=== PATIENT | female | born 1935 | race Hispanic/Latino ===

== ENCOUNTER → 2018-03-02 | Outpatient (CLI) | payer OTHER, MEDICARE ==
[~2018-03-02] MED LIST: Aspirin PO; CARV3.12 PO; GEMF600T3 PO; GLIP5TAB11 PO; ISOS30TA6 PO; LISI-617 PO; METF500T6 PO
== END | disposition home or self-care (01) ==
LOC: SHCH 15:45
PROVIDERS: ATTEND Internal Medicine Cardiovascular Disease
DX: I10 Essential (primary) hypertension (principal)
CPT/HCPCS: 93306

== ENCOUNTER 2019-10-22 22:50 | Emergency (ER) | payer OTHER, MEDICARE ==
[~2019-10-22 22:50] MED LIST changes: -GEMF600T3 PO; +GEMF600T5 PO; +METF-444 PO; -METF500T6 PO
[2019-10-22 23:34] LABS: BASOPHILS % (AUTO) 0.8 % (0.0-5.0); EOSINOPHILS % (AUTO) 2.5 % (0.0-8.0); HEMATOCRIT 40.6 % (36-48); LYMPHOCYTES % (AUTO) 19.3 % (21.0-51.0); MEAN CORPUSCULAR HEMOGLOBIN 28.4 pg (27.0-33.0); MEAN CORPUSCULAR HGB CONC 33.3 g/dL (32.0-36.0); MEAN CORPUSCULAR VOLUME 85.3 fL (79-99); MONOCYTES % (AUTO) 6.2 % (3.0-13.0); NEUTROPHILS % (AUTO) 70.8 % (40.0-77.0); PLATELET COUNT (AUTO) 143 K/uL (130-400); RED BLOOD CELL COUNT(AUTO) 4.76 MIL/uL (4.00-5.50); RED CELL DISTRIBUTION WIDTH 12.5 % (11.0-15.5); WHITE BLOOD COUNT (AUTO) 5.1 K/uL (4.8-10.8)
[2019-10-22 23:47] LABS: CREATININE 0.8 mg/dL (0.5-1.5); POTASSIUM 4.4 mmol/L (3.5-5.1)
[2019-10-22 23:48] LABS: ALBUMIN 3.7 g/dL (3.5-5.0); BILIRUBIN,TOTAL 0.8 mg/dL (0.2-1.0); TOTAL PROTEIN, SERUM 7.6 g/dL (6.0-8.3)
[2019-10-22] MEDS ORDERED: SODIUM CHLORIDE 0.9% 1000ML 1,000 ML IV ONE (23:49)
[2019-10-23 00:02] LABS: APPEARANCE,URINE Clear (CLEAR); BILIRUBIN,URINE Negative (NEGATIVE); COLOR,URINE Yellow (YELLOW); GLUCOSE, URINE (UA) Negative (NEGATIVE); KETONES,URINE Negative (NEGATIVE); LEUKOCYTE ESTERASE ,URINE Negative (NEGATIVE); NITRATE,URINE Negative (NEGATIVE); OCCULT BLOOD,URINE Negative (NEGATIVE); PH,URINE 6.5 (5.0-8.0); PROTEIN,URINE Negative (NEGATIVE); UROBILINOGEN,URINE 0.2 mg/dL (0.2-1.0)
[2019-10-23] MEDS ORDERED: PHENAZOPYRIDINE HCL 200 MG TABLET ONE (01:53)
== END 2019-10-23 02:28 | disposition home or self-care (01) ==
LOC: EDH 22:50
DX: F43.9 Reaction to severe stress, unspecified (principal); R30.0 Dysuria; I10 Essential (primary) hypertension; E11.9 Type 2 diabetes mellitus without complications; E78.5 Hyperlipidemia, unspecified; I25.10 Atherosclerotic heart disease of native coronary artery without angina pectoris; Z98.890 Other specified postprocedural states
CPT/HCPCS: 36415; 71045; 80053; 81003; 84484; 85025; 93005; 99285; J7030

== ENCOUNTER 2019-10-24 09:06 | Emergency (ER) | payer OTHER, MEDICARE ==
[2019-10-24] MEDS ORDERED: NITROGLYCERIN 1GM/1 INCH PACKET TD ONE (09:38)
[2019-10-24 10:00] LABS: INR 0.97 (0.85-1.15); PARTIAL THROMBOPLASTIN TIME 26.4 SEC (26.3-35.5); PROTHROMBIN TIME 10.2 SEC (9.6-11.6)
[2019-10-24 10:12] LABS: CREATININE 0.8 mg/dL (0.5-1.5); POTASSIUM 4.3 mmol/L (3.5-5.1)
[2019-10-24 10:17] LABS: ALBUMIN 3.6 g/dL (3.5-5.0); TOTAL PROTEIN, SERUM 7.4 g/dL (6.0-8.3)
[2019-10-24 10:24] LABS: BASOPHILS % (AUTO) 0.4 % (0.0-5.0); EOSINOPHILS % (AUTO) 1.9 % (0.0-8.0); HEMATOCRIT 41.6 % (36-48); LYMPHOCYTES % (AUTO) 19.8 % (21.0-51.0); MEAN CORPUSCULAR HEMOGLOBIN 28.2 pg (27.0-33.0); MEAN CORPUSCULAR HGB CONC 32.9 g/dL (32.0-36.0); MEAN CORPUSCULAR VOLUME 85.6 fL (79-99); MONOCYTES % (AUTO) 6.6 % (3.0-13.0); NEUTROPHILS % (AUTO) 70.9 % (40.0-77.0); PLATELET COUNT (AUTO) 137 K/uL (130-400); RED BLOOD CELL COUNT(AUTO) 4.86 MIL/uL (4.00-5.50); RED CELL DISTRIBUTION WIDTH 12.6 % (11.0-15.5); WHITE BLOOD COUNT (AUTO) 4.9 K/uL (4.8-10.8)
[2019-10-24] MEDS ORDERED: METOPROLOL TARTRATE 1 MG/ML 5ML VIAL IV ONE (11:08)
[2019-10-25] MEDS ORDERED: LOSA1TAB54 PO (20:23)
[2019-10-25] MEDS ORDERED: GLIP10TA9 PO (20:23)
[2019-10-25] MEDS ORDERED: METF-446 PO (20:23)
== END 2019-10-24 13:39 | disposition home or self-care (01) ==
LOC: EDH 09:06
DX: R07.89 Other chest pain (principal); R20.2 Paresthesia of skin; E11.65 Type 2 diabetes mellitus with hyperglycemia; I10 Essential (primary) hypertension; Z79.899 Other long term (current) drug therapy; I25.10 Atherosclerotic heart disease of native coronary artery without angina pectoris; E78.5 Hyperlipidemia, unspecified; Z87.891 Personal history of nicotine dependence; Z88.8 Allergy status to other drugs, medicaments and biological substances
CPT/HCPCS: 36415; 70450; 71045; 72125; 80053; 82550; 83880; 84484 ×2; 85025; 85610; 85730; 93005 ×2; 96374; 99285; J3490

== ENCOUNTER 2019-10-24 19:51 | Observation (INO) | payer OTHER, MEDICARE ==
[~2019-10-24] VITALS: Ht 152.4 cm; Wt 61.1 kg
[2019-10-24] MEDS ORDERED: NITROGLYCERIN 0.4 MG SL TAB SL PRN (22:15)
[2019-10-24] MEDS ORDERED: DILTIAZEM 125MG+100 ML NS 125 ML IV SCH (22:15)
[2019-10-24] MEDS ORDERED: HYDRALAZINE HCL 20 MG/ML VIAL IV PRN (22:15)
[2019-10-24] MEDS ORDERED: CLONIDINE HCL 0.1 MG TABLET PO PRN (22:15)
[2019-10-24] MEDS ORDERED: CLONIDINE HCL 0.1 MG TABLET ONE (22:41)
[2019-10-25] MEDS ORDERED: SODIUM CHLORIDE 0.9% 1000ML 1,000 ML IV SCH (01:02)
[2019-10-25] MEDS ORDERED: MAGNESIUM 2GM PREMIX 50ML 50 ML IV PRN (01:15)
[2019-10-25] MEDS ORDERED: GLUCAGON 1MG KIT 1 MG ML IM PRN (01:15)
[2019-10-25] MEDS ORDERED: LACTULOSE 20 GM/30 ML UDCUP PO PRN (01:15)
[2019-10-25] MEDS ORDERED: ACETAMINOPHEN 325 MG TAB PO PRN (01:15)
[2019-10-25] MEDS ORDERED: LIDOCAINE HCL-MPF 1% 2ML VIAL IV PRN (01:15)
[2019-10-25] MEDS ORDERED: DEXTROSE 50%-WATER 50 ML DISP.SYRIN IV PRN (01:15)
[2019-10-25] MEDS ORDERED: NITROGLYCERIN 1GM/1 INCH PACKET TD SCH (01:15)
[2019-10-25] MEDS ORDERED: DIPHENHYDRAMINE HCL 25 MG CAPSULE PO PRN (01:15)
[2019-10-25] MEDS ORDERED: POTASSIUM CHLORIDE 20MEQ/100ML 100 ML IV PRN (01:15)
[2019-10-25] MEDS ORDERED: POTASSIUM CHLORIDE 20 MEQ ERTAB PO PRN (01:15)
[2019-10-25] MEDS ORDERED: POTASSIUM CHLORIDE 10% ELIXIR 20 MEQ/15 ML UDCUP PO PRN (01:15)
[2019-10-25] MEDS ORDERED: ONDANSETRON HCL 4 MG/2 ML VIAL IV PRN (01:15)
[2019-10-25 05:10] LABS: EOSINOPHILS % (AUTO) 1.9 % (0.0-8.0); HEMATOCRIT 36.1 % (36-48); LYMPHOCYTES % (AUTO) 22.1 % (21.0-51.0); MEAN CORPUSCULAR HEMOGLOBIN 28.4 pg (27.0-33.0); MEAN CORPUSCULAR HGB CONC 33.2 g/dL (32.0-36.0); MEAN CORPUSCULAR VOLUME 85.3 fL (79-99); MONOCYTES % (AUTO) 7.2 % (3.0-13.0); NEUTROPHILS % (AUTO) 67.4 % (40.0-77.0); PLATELET COUNT (AUTO) 138 K/uL (130-400); RED BLOOD CELL COUNT(AUTO) 4.23 MIL/uL (4.00-5.50); RED CELL DISTRIBUTION WIDTH 12.7 % (11.0-15.5); WHITE BLOOD COUNT (AUTO) 5.2 K/uL (4.8-10.8)
[2019-10-25 05:24] LABS: CREATININE 0.8 mg/dL (0.5-1.5); MAGNESIUM 1.7 mg/dL (1.80-2.40); POTASSIUM 4.2 mmol/L (3.5-5.1)
[2019-10-25] MEDS ORDERED: SODIUM CHLORIDE 0.9% 500ML 500 ML IV ONE (08:02)
[2019-10-25] MEDS ORDERED: NITROGLYCERIN 1GM/1 INCH PACKET TD ONE ×2 (08:04→16:01)
[2019-10-25] MEDS ORDERED: CARVEDILOL 3.125 MG TABLET PO ONE (08:04)
[2019-10-25] MEDS ORDERED: MAGNESIUM 2GM PREMIX 50ML 50 ML IV ONE (08:04)
[2019-10-25] MEDS ORDERED: HEPARIN SODIUM 5000UNIT/ML 1ML VIAL ONE ×2 (08:04→21:10)
[2019-10-25] MEDS ORDERED: AMLODIPINE BESYLATE 5 MG TAB ONE (08:04)
[2019-10-25] MEDS ORDERED: FAMOTIDINE/PF 20 MG/2 ML VIAL IV ONE (08:05)
[2019-10-25] MEDS ORDERED: AMLODIPINE BESYLATE 5 MG TAB PO SCH (09:00)
[2019-10-25] MEDS ORDERED: CARVEDILOL 3.125 MG TABLET PO SCH ×2 (09:00→21:00)
[2019-10-25 09:03] LABS: APPEARANCE,URINE Clear (CLEAR); BILIRUBIN,URINE Negative (NEGATIVE); COLOR,URINE Yellow (YELLOW); GLUCOSE, URINE (UA) Negative (NEGATIVE); KETONES,URINE Negative (NEGATIVE); LEUKOCYTE ESTERASE ,URINE Negative (NEGATIVE); NITRATE,URINE Negative (NEGATIVE); OCCULT BLOOD,URINE Negative (NEGATIVE); PROTEIN,URINE Negative (NEGATIVE); UROBILINOGEN,URINE 0.2 mg/dL (0.2-1.0)
[2019-10-25] MEDS ORDERED: HYDRALAZINE HCL 20 MG/ML VIAL IM PRN (15:00)
[2019-10-25] MEDS ORDERED: ACETAMINOPHEN 325 MG TAB ONE (16:01)
[2019-10-25] MEDS ORDERED: LOSARTAN 50 MG TABLET ONE (16:51)
[2019-10-25] MEDS ORDERED: ISOSORBIDE MONO 30MG TAB SR PO ONE (16:51)
[2019-10-25] MEDS ORDERED: INSULIN HUMULIN R 100 UNIT/ML 3ML ONE ×2 (17:19→23:06)
[2019-10-25] MEDS ORDERED: LOSA1TAB54 PO (20:23)
[2019-10-25] MEDS ORDERED: METF-446 PO (20:23)
[2019-10-25] MEDS ORDERED: GLIP10TA9 PO (20:23)
[2019-10-25] MEDS ORDERED: FAMOTIDINE 20MG TAB 20 MG TAB ONE (21:09)
[2019-10-25] MEDS ORDERED: CARVEDILOL 6.25 MG TABLET PO ONE (21:10)
[2019-10-26] MEDS: CLOPIDOGREL BISULFATE 75 MG TAB PO SCH ×2 (00:30→10:13)
[2019-10-26] MEDS: ISOSORBIDE MONO 30MG TAB SR PO SCH ×2 (00:30→10:06)
[2019-10-26] MEDS: LOSARTAN 50 MG TABLET PO SCH ×2 (00:30→10:07)
[2019-10-26] MEDS: INSULIN HUMULIN R 100 UNIT/ML 3ML SQ SCH ×3 (00:30→12:58)
[2019-10-26] MEDS: CARVEDILOL 6.25 MG TABLET PO SCH ×2 (00:30→10:06)
[2019-10-26] MEDS: GEMFIBROZIL 600 MG TABLET PO SCH ×2 (00:30→10:06)
[2019-10-26] MEDS: FAMOTIDINE/PF 20 MG/2 ML VIAL IV SCH ×2 (00:30→10:07)
[2019-10-26] MEDS: HEPARIN SODIUM 5000UNIT/ML 1ML VIAL SQ SCH ×2 (00:30→10:09)
[2019-10-26 01:00] VITALS: BP 156/62
[2019-10-26 03:00] VITALS: BP 139/71
[2019-10-26 04:57] LABS: CREATININE 0.8 mg/dL (0.5-1.5); POTASSIUM 4.1 mmol/L (3.5-5.1)
[2019-10-26 07:00] VITALS: BP 120/69
--- NOTE | 2019-10-26 08:00 | NUR ---
AM NOTE Awake, alert, and oriented x3. Denies nay pain or shortness of breath. Plan of care discussed with pt and family, verbalized understanding. Sinus rhythm in 60s on telemetry monitoring.
[2019-10-26] MEDS ORDERED: AMLODIPINE BESYLATE 5 MG TAB PO SCH (09:00)
[2019-10-26] MEDS ORDERED: ISOSORBIDE MONO 30MG TAB SR PO SCH (09:00)
[2019-10-26] MEDS ORDERED: LISINOPRIL 5 MG TABLET PO SCH (09:00)
[2019-10-26 11:00] VITALS: BP 136/79
[2019-10-26 15:00] VITALS: BP 134/65
[2019-10-26] MEDS ORDERED: LOSA50TA2 PO (16:46)
[2019-10-26] MEDS ORDERED: CARV6.2579 PO (16:46)
[2019-10-26] MEDS ORDERED: GEMF600T5 PO (16:46)
[2019-10-26] MEDS ORDERED: AMLO5TAB4 PO (16:46)
[2019-10-26] MEDS ORDERED: CLOP75TA14 PO (16:46)
--- NOTE | 2019-10-26 18:05 | NUR ---
DC Pt discharged home as ordered by MD. Family at bedside. Instructions given on new medications, verbalized understanding.
== END 2019-10-26 18:08 | disposition home or self-care (01) ==
LOC: EDH 19:51 → EDHIP 21:29 → 2AH 10-26 00:29
PROVIDERS: ADMIT Internal Medicine; ATTEND Internal Medicine
DX: I16.1 Hypertensive emergency (principal); I10 Essential (primary) hypertension; R07.89 Other chest pain; I25.110 Atherosclerotic heart disease of native coronary artery with unstable angina pectoris; E11.9 Type 2 diabetes mellitus without complications; E78.5 Hyperlipidemia, unspecified; J44.9 Chronic obstructive pulmonary disease, unspecified; E43 Unspecified severe protein-calorie malnutrition; I70.1 Atherosclerosis of renal artery; K76.0 Fatty (change of) liver, not elsewhere classified; Z95.818 Presence of other cardiac implants and grafts; Z87.11 Personal history of peptic ulcer disease; Z79.02 Long term (current) use of antithrombotics/antiplatelets; Z79.4 Long term (current) use of insulin; Z79.899 Other long term (current) drug therapy
CPT/HCPCS: 36415 ×4; 70450; 71045; 72125; 76770; 80048 ×2; 80053; 80061; 81003; 82550 ×2; 82948 ×7; 83735; 83880; 84100; 84484 ×6; 85025 ×2; 85610; 85730; 93005 ×3; 93306; 93975; 96372; 96374 ×2; 97116; 97161; 99284; 99285; G0378 ×44; G8978; G8979; G8980; G8981; G8982; G8983; J1644 ×3; J1815 ×2; J3475; J3490 ×3; J7040

== ENCOUNTER → 2019-11-29 | Outpatient (CLI) | payer OTHER, MEDICARE ==
[~2019-11-29] MED LIST changes: +AMLO5TAB4 PO; -CARV3.12 PO; +CARV6.2579 PO; +CLOP75TA14 PO; +GLIP10TA9 PO; -LISI-617 PO; +LOSA50TA2 PO; -METF-444 PO; +METF-446 PO
== END | disposition home or self-care (01) ==
LOC: SHCH 11:06
PROVIDERS: ATTEND Internal Medicine Cardiovascular Disease
DX: I65.23 Occlusion and stenosis of bilateral carotid arteries (principal)
CPT/HCPCS: 93880

== ENCOUNTER 2021-12-05 10:39 | Emergency (ER) | payer OTHER, MEDICARE ==
[~2021-12-05] VITALS: Ht 149.9 cm; Wt 61.2 kg
[~2021-12-05 10:39] MED LIST changes: -GEMF600T5 PO; +GEMF600T89 PO; -ISOS30TA6 PO; +ISOS30TA92 PO
[2021-12-05 11:09] LABS: APPEARANCE,URINE Clear (CLEAR); BILIRUBIN,URINE Negative (NEGATIVE); COLOR,URINE Yellow (YELLOW); GLUCOSE, URINE (UA) Negative (NEGATIVE); KETONES,URINE Negative (NEGATIVE); LEUKOCYTE ESTERASE ,URINE Negative (NEGATIVE); NITRATE,URINE Negative (NEGATIVE); OCCULT BLOOD,URINE Negative (NEGATIVE); PROTEIN,URINE Negative (NEGATIVE); UROBILINOGEN,URINE 0.2 mg/dL (0.2-1.0)
[2021-12-05 11:18] LABS: BASOPHILS % (AUTO) 0.3 % (0.0-5.0); EOSINOPHILS % (AUTO) 1.4 % (0.0-8.0); HEMATOCRIT 39.8 % (36-48); LYMPHOCYTES % (AUTO) 12.6 % (21.0-51.0); MEAN CORPUSCULAR HEMOGLOBIN 27.6 pg (27.0-33.0); MEAN CORPUSCULAR HGB CONC 32.2 g/dL (32.0-36.0); NEUTROPHILS % (AUTO) 79.8 % (40.0-77.0); PLATELET COUNT (AUTO) 168 K/uL (130-400); RED BLOOD CELL COUNT(AUTO) 4.63 MIL/uL (4.00-5.50); RED CELL DISTRIBUTION WIDTH 12.4 % (11.0-15.5); WHITE BLOOD COUNT (AUTO) 9.2 K/uL (4.8-10.8)
[2021-12-05 11:25] LABS: ALBUMIN 3.2 g/dL (3.5-5.0); CREATININE 0.8 mg/dL (0.5-1.5); POTASSIUM 4.7 mmol/L (3.5-5.1); TOTAL PROTEIN, SERUM 7.7 g/dL (6.0-8.3)
[2021-12-05] MEDS ORDERED: FAMOTIDINE 20MG VIAL IV ONE (13:00)
[2021-12-05] MEDS ORDERED: ONDANSETRON 4MG INJ IVP ONE (13:00)
[2021-12-05] MEDS ORDERED: 0.9% NACL 500ML IV.SOLN 500 ML IV ONE (13:00)
[2021-12-05] MEDS ORDERED: MORPHINE 2 MG SYG IVP ONE (13:00)
[2021-12-05] MEDS ORDERED: IOHEXOL-350 75 ML VIAL IV ONE (14:48)
[2021-12-05] MEDS ORDERED: ZOSYN 3.375GM +NS 50ML IV SCH (17:00)
[2021-12-05] MEDS ORDERED: TRAM50TA2 PO (17:02)
[2021-12-05] MEDS ORDERED: METR-172 PO (17:02)
[2021-12-05] MEDS ORDERED: CIPR-278 PO (17:07)
[2021-12-05 17:44] VITALS: BP 145/79
== END 2021-12-05 17:45 | disposition home or self-care (01) ==
LOC: EDH 10:39
DX: K57.92 Diverticulitis of intestine, part unspecified, without perforation or abscess without bleeding (principal); R10.32 Left lower quadrant pain; I10 Essential (primary) hypertension; E11.9 Type 2 diabetes mellitus without complications; Z79.82 Long term (current) use of aspirin; Z79.84 Long term (current) use of oral hypoglycemic drugs; Z79.899 Other long term (current) drug therapy
CPT/HCPCS: 36415; 74177; 80053; 81003; 85025; 96365; 96375; 99285; J2405; J2543; J3490; J7040; Q9967

== ENCOUNTER → 2022-05-28 | Outpatient (CLI) | payer OTHER, MEDICARE ==
[~2022-05-28] MED LIST changes: +CIPR-278 PO; +METR-172 PO; +TRAM50TA2 PO
== END | disposition home or self-care (01) ==
LOC: SHCH 12:18
PROVIDERS: ATTEND Internal Medicine Cardiovascular Disease
DX: I11.9 Hypertensive heart disease without heart failure (principal); I25.119 Atherosclerotic heart disease of native coronary artery with unspecified angina pectoris; E11.9 Type 2 diabetes mellitus without complications; E78.5 Hyperlipidemia, unspecified
CPT/HCPCS: 93306

== ENCOUNTER → 2022-06-02 | Outpatient (CLI) | payer OTHER, MEDICARE ==
[~2022-06-02] VITALS: Ht 152.4 cm; Wt 59.9 kg
[~2022-06-02] MED LIST changes: +REGADENOSON 0.4 MG/5 ML PF SYG IVP SCH
== END | disposition home or self-care (01) ==
LOC: SHCH 08:57
PROVIDERS: ATTEND Internal Medicine Cardiovascular Disease
DX: I20.9 Angina pectoris, unspecified (principal); R06.09 Other forms of dyspnea; I35.8 Other nonrheumatic aortic valve disorders
CPT/HCPCS: 78452; 93017; J2785; A9500 ×2; 96374

== ENCOUNTER 2022-11-02 08:46 | Emergency (ER) | payer OTHER, MEDICARE ==
[~2022-11-02] VITALS: Ht 152.4 cm; Wt 61.2 kg
[~2022-11-02 08:46] MED LIST changes: +CLOP-31 PO; -CLOP75TA14 PO; -REGADENOSON 0.4 MG/5 ML PF SYG IVP SCH
[2022-11-02] MEDS ORDERED: ACETAMINOPHEN 500 MG TABLET PO STA (08:50)
[2022-11-02 08:55] VITALS: BP 185/88
[2022-11-02] MEDS ORDERED: ACET-66 PO (10:27)
[2022-11-02] MEDS ORDERED: TRAMADOL HCL 50 MG TABLET PO STA (10:40)
== END 2022-11-02 11:34 | disposition home or self-care (01) ==
LOC: EDH 08:46
DX: S09.90XA Unspecified injury of head, initial encounter (principal); E11.9 Type 2 diabetes mellitus without complications; I10 Essential (primary) hypertension; Z79.84 Long term (current) use of oral hypoglycemic drugs; Z79.899 Other long term (current) drug therapy; R07.1 Chest pain on breathing; W06.XXXA Fall from bed, initial encounter; Y93.89 Activity, other specified; Y92.89 Other specified places as the place of occurrence of the external cause; Y99.8 Other external cause status
CPT/HCPCS: 70450; 71101; 72125; 93005

== ENCOUNTER → 2024-04-04 | Outpatient (CLI) | payer OTHER, MEDICARE ==
[~2024-04-04] MED LIST changes: +ACET-66 PO; -AMLO5TAB4 PO; -Aspirin PO; -CIPR-278 PO; -CLOP-31 PO; -GEMF600T89 PO; -GLIP5TAB11 PO; -ISOS30TA92 PO; +LOSA-418 PO; -LOSA50TA2 PO; -METR-172 PO; -TRAM50TA2 PO
== END | disposition home or self-care (01) ==
LOC: SHCH 08:33
PROVIDERS: ATTEND Internal Medicine Cardiovascular Disease
DX: I08.0 Rheumatic disorders of both mitral and aortic valves (principal); R07.9 Chest pain, unspecified; I10 Essential (primary) hypertension; E78.5 Hyperlipidemia, unspecified; E11.9 Type 2 diabetes mellitus without complications
CPT/HCPCS: 93306